=== PATIENT | male | born 1960 | race Caucasian/White ===

== ENCOUNTER → 2019-11-22 11:27 | Outpatient (CLI) | payer OTHER, SELFPAY ==
--- NOTE | ~2019-11-22 | XR_ITS ---
EXAMINATION: [id number] INDICATION: Left rib pain after fall TECHNIQUE: A frontal view of the chest and 3 views of the left ribs were obtained. COMPARISON: None. FINDINGS: The lungs are free of acute opacities. There is no pleural effusion or pneumothorax. The ca rdiomediastinal silhouette is normal. No displaced rib fracture is identified. IMPRESSION: 1. No acute cardiopulmonary abnormality or evidence of displaced rib fracture. Reviewed, dictated and finalized at location B.
--- NOTE | ~2019-11-22 | XR_ITS ---
EXAMINATION: XR lumbar spine 2-3V DATE: 11/22/2019 12:04 INDICATION: Back pain after fall TECHNIQUE: Anteroposterior and lateral views of the lumbar spine, and cone-down lateral view of the l umbosacral junction were obtained. COMPARISON: None. FINDINGS: There is no fracture, dislocation, or subluxation the lumbar spine. There is moderate to se gladis loss of intervertebral disc space height at L5-S1. Vertebral body heights are maintained. Small degenerative osteophytes project from the anterior endplates of multiple vertebral bodies. There is m oderate facet osteoarthritis of the lower lumbar spine. The gallbladder is surgically absent. There i s mild enlargement of the common bile duct and central intrahepatic ducts which is likely due to post cholecystectomy state. There is a possible left posterior 11th rib fracture. IMPRESSION: 1. Moderate to severe lumbar spondylosis at L5-S1 without acute findings of the lumbar spine. 2. Possible nondisplaced posterior left 11th rib fracture. Reviewed, dictated and finalized at location B.
--- NOTE | ~2019-11-22 | XR_ITS ---
EXAMINATION: XR thoracic spine 3V DATE: 11/22/2019 12:04 INDICATION: Back pain TECHNIQUE: AP, lateral and lateral swimmer's views of the thoracic spine were obtained. COMPARISON: None. FINDINGS: Vertebral body alignment is normal. No fracture is identified. There is mild loss of interv ertebral disc space height at multiple throughout the thoracic spine. Surgical clips in the right upp er quadrant are likely from prior cholecystectomy. The vertebral body heights are maintained. IMPRESSION: 1. Mild thoracic spondylosis without acute findings. Reviewed, dictated and finalized at location B.
== END ==
PROVIDERS: PCP Family Medicine Adolescent Medicine; Visit Provider Physician Assistant
DX: R07.81 Pleurodynia (principal); M54.9 Dorsalgia, unspecified; R93.7 Abnormal findings on diagnostic imaging of other parts of musculoskeletal system; M47.814 Spondylosis without myelopathy or radiculopathy, thoracic region; W19.XXXA Unspecified fall, initial encounter
CPT/HCPCS: 71101; 72072; 72100

== ENCOUNTER 2024-11-11 19:19 | Observation (INO) | payer OTHER, SELFPAY ==
--- NOTE | ~2024-11-11 | XR_ITS ---
EXAMINATION: XR chest 1V portable Exam Date/Time: 11/11/2024 19:52 CDT HISTORY: dizziness/weakness Comparison: None. RESULT: Lines, tubes, and devices: Cholecystectomy clips. Lungs and pleura: Clear. Cardiomediastinal silhouette: Unremarkable. Other: No acute osseous or upper abdominal finding. IMPRESSION: No acute cardiopulmonary process. Reviewed, dictated and finalized at location K.
--- NOTE | ~2024-11-11 | CT_ITS ---
EXAMINATION: CT brain wo con DATE: 11/11/2024 20:22 INDICATION: dizziness/vision changes . TECHNIQUE: Computed tomography (CT) of the head was performed without intravenous contrast. The mA wa s adjusted according to patient size. Iterative reconstruction technique was employed. The dose-lengt h product was 681.00 mGy-cm. COMPARISON: None. FINDINGS: No acute intracranial hemorrhage or extra-axial fluid collection. No hydrocephalus, mass, or herniation. No acute ischemic infarct. Unremarkable dural venous sinus attenuation. No acute osseous abnormality. Tiny retention cyst/polyp in the right maxillary sinus, the remaining aerated spaces are clear. IMPRESSION: No acute intracranial process. Reviewed, dictated and finalized at location K.
--- NOTE | ~2024-11-11 | MR_ITS ---
EXAMINATION: MR brain/brain stem wo con DATE: 11/12/2024 12:37 INDICATION: Dizziness. Unstable gait. TECHNIQUE: Magnetic resonance imaging (MRI) of the brain and brainstem was performed without intraven ous contrast. Sequences included sagittal and axial T1-weighted SE, axial diffusion-weighted FS SE, a xial 3D SWAN, axial T2-weighted FLAIR, and axial T2-weighted FSE. Postcontrast axial and coronal T1-w eighted SE was obtained. Apparent diffusion coefficient (ADC) maps were created. COMPARISON: None. FINDINGS: There are no areas of restricted diffusion to suggest acute infarction. No intracranial hemorrhage or abnormal intracranial mass lesion. There are scattered areas of nonspecific increased T2-weighted si gnal intensity in the cerebral white matter, predominantly involving the deep and periventricular whi te matter. There are no intraparenchymal signal abnormalities seen on the other pulse sequences. The ventricles are symmetric and normal in size. There are no abnormal extra-axial fluid collections. Bronson w voids are seen in the cerebral arteries on the T2-weighted sequences consistent with their expected patency. Left vertebral artery is dominant. Changes of bilateral intraocular lens replacement. Visu alized orbits and soft tissues are unremarkable. IMPRESSION: 1. Normal aging brain with a few scattered small foci of nonspecific white matter T2 hyperintensity w hich is within normal limits for age and likely sequela of chronic small vessel ischemic disease. Reviewed, dictated and finalized at location A. IMPRESSION: 1. Normal aging brain with a few scattered small foci of nonspecific white david er T2 hyperintensity which is within normal limits for age and likely sequela o f chronic small vessel ischemic disease.
--- NOTE | ~2024-11-11 | CT_ITS ---
EXAMINATION: CTA brain carotid DATE: 11/11/2024 21:33 INDICATION: dizziness TECHNIQUE: Computed tomographic angiography (CTA) of the head and neck was performed with 100 mL Omni paque-350 intravenous contrast. Automated exposure control and iterative reconstruction technique wer e employed. The dose-length product was 1026.18 mGy-cm. Maximum intensity projection and volume rende red 3D-reconstructions were created by the technologist on a separate workstation. COMPARISON: CT brain, same date. FINDINGS: CTA HEAD: No large vessel occlusion, aneurysm, high flow vascular malformation, nidus or extravasation. Hypopla stic intradural segment of the distal right vertebral artery. Hypoplastic/absent left P1 segment with persistent origin of the left posterior cerebral artery, a normal variant. Symmetric parenchym al enhancement. Patent cerebral veins. CTA NECK: Aortic arch and proximal great vessels: Normal arch anatomy. Atherosclerotic calcifications at the vi sualized aortic arch and proximal great vessels. Right common carotid, carotid bifurcation, and internal carotid artery: Mild calcified atheroscleroti c plaque at the carotid bifurcation.There is 0% stenosis of the proximal right internal carotid arter y relative to normal distal artery lumen diameter (NASCET criteria). Left common carotid, carotid bifurcation, and internal carotid artery: Moderate calcified atheroscler otic plaque at the carotid bifurcation.There is 10% stenosis of the proximal left internal carotid ar mariam relative to normal distal artery lumen diameter (NASCET criteria). Vertebral arteries: No significant plaque or stenosis. Left vertebral artery is dominant. Other findings: None. IMPRESSION: No large vessel intracranial occlusion, high-grade intracranial stenosis, or aneurysm. No carotid or vertebral artery occlusion, dissection, or significant stenosis. Reviewed, dictated and finalized at location K. IMPRESSION: No large vessel intracranial occlusion, high-grade intracranial stenosis, or an eurysm. No carotid or vertebral artery occlusion, dissection, or significant stenosis.
[2024-11-11 19:21] VITALS: BP 159/97; PULSE 60; RESP 18; TEMP 36.7; O2SAT 96
--- OUTSIDE RECORDS SUMMARY | 2024-11-11 19:22 | XMS_ITS | Clinical Summary ---
Author Organization [facility] [employer] Address [address] [place] [address] Care Team Providers Care Stereoptic Projection Topographer Name Role Phone Pablito Gates MD Primary Care Provider + Source Comments [facility] [employer],non-owned Affiliates and Associated Physician Practices is amultiple site organization consisting of ambulatory clinics and hospital sitesin [place], [place], [place] and [place]. This disclosure is being madepursuant to the Care Everywhere program and may not contain all information available regarding this patient. Last updated 18.[facility] [employer] Allergies No known active allergies Medications * Be aware that medications may not be up to date on this document. Alwaysverify current medications with the patient. Medication Sig Dispensed Refills Start Date End Date Status zolpidem (AMBIEN) 10 MG tablet Take 1 (one) tablet by mouth nightly as needed for Insomnia 20 tablet 10/20/2020 Active Active Problems No known active problems Social History Tobacco Use Types Packs/Day Years Used Date Smoking Tobacco: Never Smokeless Tobacco: Never Alcohol Use Standard Drinks/Week Comments Never 0 (1 standard drink = 0.6 oz pur e alcohol) AUDIT-C Answer Date Recorded Q1: How often do you have a drink containing alc ohol? Never 07/31/2020 Average Number of Drinks Not on file 020 Frequency of Binge Drinking Not on file 10/2019 Sex and Gender Information Value Date Recorded Sex Assigned at Not on file Gender Identity Not on file Sexual Orientation Not on file Last Filed Vital Signs Vital Sign Reading Time Taken Comments Blood Pressure 128/84 08/08/2020 1:00 PM CARDIAC RN Pulse 57 08/08/2020 1:00 PM CARDIAC RN Temperature 36.2 C (97.1 F) 08/08/2020 12:47 PM CARDIAC RN Respiratory Rate 15 08/08/2020 12:20 PM CARDIAC RN Oxygen Saturation 99% 08/08/2020 1:00 PM CARDIAC RN Inhaled Oxygen Concentration - - Weight 74.5 kg (164 lb 3.2 oz) 08/08/2020 8:12 A M CARDIAC RN Height 170.2 cm (5' 7 ) 08/08/2020 8:12 AM CARDIAC RN Body Mass Index 25.72 08/08/2020 8:12 AM CARDIAC RN Plan of Treatment Health Maintenance Due Date Last Done Comments COLOGUARD (AGES 45-75) - COL ON CA SCREENING 1960 COLON MONITORING 1960 COLONOSCOPY - COLON CA SCREENING 1960 CT COLONOGRAPHY - COLON CA SCREENING 1960 Colorectal Cancer Screening 1960 FIT - COLON CA SCREENING 1960 FLEX SIG - COLON CA SCREENING 1960 LIPID TESTING 1960 HIV SCREENING 12/26/1975 HEPATITIS C SCREENING 12/21/1978 DTAP/TDAP/TD VACCINES (1 - Tdap) 12/26/1979 PNEUMOCOCCAL VACCINE 50+ (1 of 1 - PCV) 2010 ZOSTER VACCINE (1 of 2) 2010 SCREENING FOR DIABETES 07/31/2020 COVID-19 VACCINE ( - 2023-2 5 season) 2024 INFLUENZA VACCINE (#1) 2024 DEPRESSION SCREENING 08/29/2024 Respiratory Syncytial Virus (RSV) Vaccine Pt: or over 60 yrs (1 - 1-dose 75+ series) 12/26/2035 HEPATITIS B VACCINE Aged Out No longe r eligible based on patient's age to complete this topic HIB VACCINE Aged Out No longer eligi ble based on patient's age to complete this topic HPV VACCINE Aged Out No longer eligi ble based on patient's age to complete this topic MENINGOCOCCAL (Group B) VACC INE SHARED DECISION-MAKING Aged Out No longer eligibl e based on patient's age to complete this topic MENINGOCOCCAL GROUPS A/C/Y/W VACCINE Aged Out No longer eligible b ased on patient's age to complete this topic PNEUMOCOCCAL VACCINE Aged Out No long er eligible based on patient's age to complete this topic Medical Devices Implanted Type Area Applied Psychology Teacher Device Identifier Shelf Expiration Date Model / Serial / Lot [place] Sut Iconix Spd Xbraid 2.3mm 1.2mm Implanted:Qty : 2 on 08/08/2020 by Nayely Reddy MD at [facility] Right: Shoulder [employer] 05/19/2022 [id number] / / [id number] [place] Sut Reelx Stt 4.5mm Peek Mtl Implanted:Qty : 2 on 08/08/2020 by Nayely Reddy MD at [facility] Right: Shoulder [employer] 04/28/2022 [id number] / / [id number] Care Teams Stereoptic Projection Topographer Relationship Specialty Start Date End Date Pablito Gates MD [address] [address] PCP - General Family Medicine 07/31/20
--- OUTSIDE RECORDS SUMMARY | 2024-11-11 19:22 | XMS_ITS | Referral Summary ---
Author Organization [facility] Address [address] [place] [address] Care Team Providers Care Parts Lister Name Role Phone Pablito Gates MD Primary Care Provider + Source Comments [facility],non-owned Affiliates and Associated Physician Practices is amultiple site organization consisting of ambulatory clinics and hospital sitesin [place], [place], [place]. This disclosure is being madepursuant to the Care Everywhere program and may not contain all information available regarding this patient. Last updated 18.[facility] [employer] Allergies No known active allergies Medications * [...] Comments Blood Pressure 128/84 08/08/2020 1:00 PM FORM SETTER SUPERVISOR Pulse 57 08/08/2020 1:00 PM FORM SETTER SUPERVISOR Temperature 36.2 C (97.1 F) 08/08/2020 12:47 PM FORM SETTER SUPERVISOR Respiratory Rate 15 08/08/2020 12:20 PM FORM SETTER SUPERVISOR Oxygen Saturation 99% 08/08/2020 1:00 PM FORM SETTER SUPERVISOR Inhaled Oxygen Concentration - - Weight 74.5 kg (164 lb 3.2 oz) 08/08/2020 8:12 A M FORM SETTER SUPERVISOR Height 170.2 cm (5' 7 ) 08/08/2020 8:12 AM FORM SETTER SUPERVISOR Body Mass Index 25.72 08/08/2020 8:12 AM FORM SETTER SUPERVISOR Plan of Treatment Not on file Medical Devices Implanted Type Area Restrike Hammer Operator Device Identifier Shelf Expiration Date Model / Serial / Lot [place] Sut Iconix Spd Xbraid 2.3mm 1.2mm Implanted:Qty : 2 on 08/08/2020 by Nayely Reddy MD at [facility] Right: Shoulder [employer] 05/19/2022 [id number] / / [id number] [place] Sut Reelx Stt 4.5mm Peek Mtl Implanted:Qty : 2 on 08/08/2020 by Nayely Reddy MD at [facility] Right: Shoulder [employer] 04/28/2022 [id number] / / [id number] Care Teams Parts Lister Relationship Specialty Start Date End Date Pablito Gates MD [address] [address] PCP - General Family Medicine 07/31/20
--- OUTSIDE RECORDS SUMMARY | 2024-11-11 19:22 | XMS_ITS | Patient Health Summary ---
Author Organization [facility] Address [address] [place] [address] Care Team Providers Care Manufacturing Coordinator Name Role Phone Pablito Gates MD Primary Care Provider + Note from [facility],non-owned Affiliates and Associated Physician Practices is amultiple site organization consisting of ambulatory clinics and hospital sitesin [place], [place] and [place]. This disclosure is being madepursuant to the Care Everywhere program and may not contain all information available regarding this patient. Last updated 18.[facility] Allergies No known active allergies Medications * Be aware that medications may not be up to date on this document. Alwaysverify current medications with the patient. * zolpidem (AMBIEN) 10 MG tablet(Started 10/20/2020) Take 1 (one) tablet by mouth nightly as needed for Insomnia Active Problems No known active problems Social [...] Comments Blood Pressure 128/84 08/08/2020 1:00 PM NETWORK SECURITY ADMINISTRATOR Pulse 57 08/08/2020 1:00 PM NETWORK SECURITY ADMINISTRATOR Temperature 36.2 C (97.1 F) 08/08/2020 12:47 PM NETWORK SECURITY ADMINISTRATOR Respiratory Rate 15 08/08/2020 12:20 PM NETWORK SECURITY ADMINISTRATOR Oxygen Saturation 99% 08/08/2020 1:00 PM NETWORK SECURITY ADMINISTRATOR Inhaled Oxygen Concentration - - Weight 74.5 kg (164 lb 3.2 oz) 08/08/2020 8:12 A M NETWORK SECURITY ADMINISTRATOR Height 170.2 cm (5' 7 ) 08/08/2020 8:12 AM NETWORK SECURITY ADMINISTRATOR Body Mass Index 25.72 08/08/2020 8:12 AM NETWORK SECURITY ADMINISTRATOR Medical Devices Implanted Type Area Forklift Operator Device Identifier Shelf Expiration Date Model / Serial / Lot [place] Sut Iconix Spd Xbraid 2.3mm 1.2mm Implanted:Qty : 2 on 08/08/2020 by Nayely Reddy MD at [facility] Right: Shoulder [employer] 05/19/2022 [id number] / / [id number] [place] Sut Reelx Stt 4.5mm Peek Mtl Implanted:Qty : 2 on 08/08/2020 by Nayely Reddy MD at [facility] Right: Shoulder [place] [employer] 04/28/2022 [id number] / / [id number] Procedures * CARDIAC RHYTHM STRIP ORDER(Performed 08/11/2020) * IMAGING/RADIOLOGY/XRAY RESULTS ORDER(Performed 08/11/2020) * REPAIR ROTATOR CUFF SHOULDER (OPEN)(Performed 08/08/2020) Performed for Traumatic tear of right rotator cuff, initial encounter * MT SCOPE SHLDR SURG;W/ROTOR CUFF(Performed 08/08/2020) Performed for Traumatic tear of right rotator cuff, initial encounter * PERIPHERAL BLOCK(Performed 08/08/2020) * SARS-COV-2 (COVID-19) IN HOUSE(Performed 08/04/2020) Performed for Pre-op testing * SARS-COV2 (COVID-19) PANEL (STL)(Performed 08/04/2020) Performed for Pre-op testing * IMAGING/RADIOLOGY/XRAY RESULTS ORDER(Performed 07/14/2020) Results * CARDIAC RHYTHM STRIP ORDER (08/11/2020 9:22 PM NETWORK SECURITY ADMINISTRATOR) Narrative 08/11/2020 9:22 PM NETWORK SECURITY ADMINISTRATOR Ordered by an unspecified provider. Scanned Document CARDIAC SERVICES ORD ERABLES * IMAGING RADIOLOGY XRAY RESULTS ORDER (08/11/2020 7:41 PM NETWORK SECURITY ADMINISTRATOR) Only the most recent of2 resultswithin the time period is included. Anatomical Region Laterality Modality Other Narrative 08/11/2020 7:41 PM NETWORK SECURITY ADMINISTRATOR Ordered by an unspecified provider. Scanned Document IMAGING * Peripheral Nerve Block (08/08/2020 9:12 AM NETWORK SECURITY ADMINISTRATOR) Narrative Dennis Duff MD - 08/08/2020 9:12 AM NETWORK SECURITY ADMINISTRATOR Dennis Duff MD 08/08/2020 9:13 AM Peripheral Nerve Block Procedure: Peripheral Nerve Block Patient Location: Pre-op Preprocedure Section: Indications: at surgeon's request and postop pain management. Pre-anesthetic Checklist: Patient identified, IV Checked, Site examined and clear, Risks and benefits discussed, Surgical consent verified, Monitors and equipment, Time-out performed, Informed consent obtained, Pre-op evaluation done, Questions answered/anesthesia questions answered, Allergies reviewed and Removal hand/wrist jewelry Monitors: Pulse Ox. Patient Condition: sedated, meaningful contact maintained throughout procedure Patient Position: supine Patient Sedated? Yes Sedation Type: mild Sedation Agents: fentaNYL (PF) (SUBLIMAZE) injection, 50 mcg midazolam (VERSED) injection, 2 mg Procedure Section Laterality: right Block Performed: interscalene Prep: Chloraprep Strerile Field: gloves, mask, hat/cap and sterile ultrasound sleeve Skin localized with: lidocaine (XYLOCAINE) 1 % injection, 3 mL Needle Type: nerve stimulator Needle Gauge: 21 Needle Length: 80 mm Catheter? No Ultrasound Guided? Yes Technique: in plane Visualization: Target identified, Local visualized surrounding nerve on ultrasound, Ultrasound image in chart, Preliminary scan performed, Important anatomical structures identified, Needle tip visualized throughout the procedure and No intraneural or intravascular puncture occurred Injection was made incrementally with constant monitoring and aspirations every 5 mL's Injection Assessment: Slow fractionated injection Block Agents or Additives used? Yes Block agents used: bupivacaine PF (MARCAINE PF) 0.5 % injection, 15 mL bupivacaine liposome (EXPAREL) 1.3 % injection, 10 mL Procedure Tolerance: tolerated well Procedure Start Time: 08/08/2020 9:02 AM. Procedure End Time: 08/08/2020 9:11 AM. Procedure Total Time: 9 minutes. Staff Section Anesthesia Provider: Dennis Duff MD, Performed the procedure Dennis Duff MD GENERAL ANESTH ESIA ORDERABLES * SARS-COV-2 (COVID-19) IN HOUSE (08/04/2020 11:09 AM NETWORK SECURITY ADMINISTRATOR) COVID-19 PCR Not detected Not detected 08/04/2020 2:44 PM NETWORK SECURITY ADMINISTRATOR [facility] Microbiology SPECIMEN FROM NASOPHARYNGEAL STRUCTURE / Unknown Collection / Unknown 08/04/2020 11:09 AM NETWORK SECURITY ADMINISTRATOR 08/04/2020 11:09 AM NETWORK SECURITY ADMINISTRATOR Narrative [facility] - 08/04/2020 2:44 PM NETWORK SECURITY ADMINISTRATOR This nucleic acid amplification assay performance was validated by [facility]. This test has been authorized by the Food and Drug administration (FDA)under an Emergency Use Authorization (EUA). This test has been validated in accordance with the FDA's guidance document Policy for Diagnostic Testing in Laboratories Certified to perform High Complexity Testing under CLIA prior to Emergency Use Authorization for Coronavirus Disease-2019 during the Public Health Emergency issued on October 27, 2019. FDA independent review of this validation is pending. This test is only authorized for the duration of time the declaration that circumstances exist justifying the authorization of emergency use of in vitro diagnostic tests for detection of SARS-CoV-2 virus and/or diagnosis of COVID-19 infection under section 564(b)(1) of the Act, 21 U.S.C 360bbb-3 (b)(1), unless the authorization is terminated or revoked sooner. Fact Sheets for this EUA assay are available upon request. Nayely Reddy MD LAB - MICROBIOLOGY O RDERABLES [facility] [address] [place] [address], [facility] [phone] Care Teams Manufacturing Coordinator Relationship Specialty Start Date End Date Pablito Gates MD [address] [address] PCP - General Family Medicine 07/31/20
--- NOTE | 2024-11-11 19:27 | ECG_ITS ---
Test Date: 2024-11-11 19:31:51 Measurements Intervals [place] Rate: 56 P: 32 FL: 175 QRS: -27 QRSD: 110 T: 23 QT: 415 QTc: 401 Interpretive Statements SINUS BRADYCARDIA INFERIOR MYOCARDIAL INFARCTION , PROBABLY OLD [40+ ms Q WAVE AND/OR ST/T ABNORMALITY IN II/aVF] No previous ECG available for comparison Electronically Signed On 11-12-2024 15:13:30 CDT by Jorge Russell M.D.
[2024-11-11 19:43] LABS: Basophils Absolute Auto 0.1 K/mm3 (0.0-0.1); Basophils Percent Auto 1.4 % (0.2-1.2); Eosinophils Absolute Auto 0.1 K/mm3 (0-0.3); Eosinophils Percent Auto 1.2 % (0-4.4); Hematocrit 45.4 % (42.0-52.0); Hemoglobin 16.3 g/dL (14.0-18.0); Immature Granulocyte Absolute 0.09 K/mm3 (0.00-0.031); Immature Granulocyte Percent A 1.2 % (0-0.5); Lymphocytes Absolute Auto 2.26 K/mm3 (0.9-3.2); Lymphocytes Percent Auto 30.9 % (18.3-44.2); Mean Corpuscular HGB Conc 35.9 g/dl (32-36); Mean Corpuscular Hemoglobin 33.4 pg (26-34); Mean Platelet Volume 9.1 fl (7.4-10.4); Monocytes Absolute Auto 0.5 K/mm3 (0.1-0.6); Monocytes Percent Auto 6.7 % (2.6-8.5); Neutrophils Absolute Auto 4.3 K/mm3 (1.3-6.7); Neutrophils Percent Auto 58.6 % (45.5-73.1); Platelet Count Result 224 k/mm3 (150-375); Red Blood Count 4.88 M/mm3 (4.6-6.20); White Blood Count 7.3 K/mm3 (4.5-10.0)
[2024-11-11 19:57] LABS: Alanine Aminotransferase 42 U/L (6-50); Albumin Level 4.6 g/dL (3.5-5.1); Alkaline Phosphatase 86 U/L (38-126); Anion Gap 9 mmol/L (4-12); Aspartate Amino Transferase 30 U/L (17-59); Bilirubin,Total 0.7 mg/dL (0.2-1.3); Blood Urea Nitrogen 24 mg/dL (9-20); Calcium 9.3 mg/dL (8.4-10.2); Carbon Dioxide 27 mmol/L (22-30); Chloride 101 mmol/L (98-107); Estimated CRCL calculation 49 ml/min; Estimated Glomerular Filt Rate 56; Glucose 115 mg/dL (65-110); Potassium 4.1 mmol/L (3.4-5.0); Sodium 137 mmol/L (137-145)
--- NOTE | 2024-11-11 20:02 | PC.NURSE ---
Patient reports dizziness/blurred vision to be intermittent. Currently not experiencing any symptoms besides weakness.
--- NOTE | 2024-11-11 20:37 | ED.NEUROSD ---
HPI - Neuro Symptoms/Deficit General Chief Complaint: Neuro Symptoms/Deficit <KATERINA Rankin Last Filed: 11/12/24 00:51> Stated Complaint: pale, double vision, balance issues, nausea <KATERINA Rankin Last Filed: 11/12/24 00:51> Time Seen by Provider: 11/11/24 20:17 <KATERINA Rankin Last Filed: 11/12/24 00:51> Source: patient <KATERINA Rankin Last Filed: 11/12/24 00:51> Mode of arrival: ambulatory <KATERINA Rankin Last Filed: 11/12/24 00:51> Limitations: no limitations <KATERINA Rankin Last Filed: 11/12/24 00:51> History of Present Illness HPI Narrative: This is a 63 year old male that presents to the ER for dizziness. Ongoing since yesterday. Reports feeling unwell, dizziness, unsteady gait, blurry vision. Worsening upon standing. reports some confusion and slurred speech. <KATERINA Rankin Last Filed: 11/12/24 00:51> Related Data Home Medications: Home Medications ?Medication ?Instructions ?Recorded ?Confirmed ?Last Taken ?Type methylprednisolone 4 mg tablets in mg 11/12/24 11/11/24 History a dose pack <KATERINA Rankin Last Filed: 11/12/24 00:51> Allergies/Adverse Reactions: Allergies Allergy/AdvReac Type Severity Reaction Status Date / Time No Known Allergies Allergy Mild Verified 04/27/23 12:37 <KATERINA Rankin Last Filed: 11/12/24 00:51> Review of Systems Review of Systems: CONSTITUTIONAL: Denies fever EYES: Reports visual changes CARDIOVASCULAR: Denies chest pain RESPIRATORY: Denies dyspnea. GASTROINTESTINAL: Denies abdominal pain, nausea, vomiting NEUROLOGIC: Denies headache, numbness, or weakness. <KATERINA Rankin Last Filed: 11/12/24 00:51> All systems reviewed & are unremarkable except as noted in HPI and below <KATERINA Rankin Last Filed: 11/12/24 00:51> [facility] Past Medical History Medical History: Medical History (Updated 11/12/24 @ 12:18 by Jere Aldrich MD) AMS (altered mental status) Mixed hyperlipidemia <Savannah Sheikh PA-C - Last Filed: 11/12/24 00:51> Surgical History Surgical History: Surgical History (Updated 12/09/21 @ 07:01 by Pablito Gates MD) History of shoulder surgery 2020 Right rotator cuff repair History of tonsillectomy History of cholecystectomy 2005 <Savannah Sheikh PA-C - Last Filed: 11/12/24 00:51> Family History Family History: Family History Father Heart disease Mother Diabetes mellitus FH: ovarian cancer Cerebrovascular accident Colon polyp Hypertension Sibling CHF (congestive heart failure) Grandparent Acute myocardial infarction Other Malignant neoplasm of prostate <Savannah Sheikh PA-C - Last Filed: 11/12/24 00:51> Social History Social History: Social History (Updated 04/27/23 @ 13:01 by Edward Pelletier CMA) Smoking status: Never smoker Second hand tobacco smoke exposure: No Alcohol intake: never Substance use: never Substance use type: does not use Do You Feel Safe in your Home?: Yes Lack of Transportation: No Lack of Food: Never True Current Housing: I Have Housing Concerned About Future Housing: No Difficulty Paying Gas/Electric Bills: No Difficulty Paying for Meds: No Currently Unemployed: No Education: Associate Degree Difficulty w/ Childcare or Family Care: No Living arrangements: with family Occupation/Education: occupation Gender identity (if verbalized by the patient): Male Sexual Orientation (if Verbalized by the Patient): Straight or Heterosexual Spiritual care concerns: No Agree to blood products: Yes <Savannah Sheikh PA-C - Last Filed: 11/12/24 00:51> Exam Narrative: GENERAL: Well-appearing, well-nourished, and in no acute distress. HEAD: Normocephalic, atraumatic. EYES: PERRLA and EOMI. ENT: Nares clear, no rhinorrhea or epistaxis. Mucous membranes moist. Oropharynx without tonsillar hypertrophy exudate or other lesions. Bilateral TMs pearly mccollum non-bulging NECK: Supple. No adenopathy or masses. CHEST: Clear to auscultation. No respiratory distress. No wheezes rales or rhonchi HEART: Regular rate and rhythm. No murmur heard. Normal peripheral pulses. ABDOMEN: Soft, nontender, nondistended, normal active bowel sounds. EXTREMITIES: Normal range of motion. No edema. Strength equal in bilateral upper and lower extremities (5/5) SKIN: Warm, dry, no rash. NEURO: No focal deficits. Alert and oriented x3. Cranial nerves 2-12 grossly intact. Normal finger-nose PSYCH: Normal mood and affect <Savannah Sheikh PA-C - Last Filed: 11/12/24 00:51> Course Course Emergency Course: patient and family updated on workup and recommendation for admission <Savannah Sheikh PA-C - Last Filed: 11/12/24 00:51> WATCH ASSEMBLY INSPECTOR/PA Physician Supervision I briefly heard PA give partial report to aeronautics teacher admitting hospitalist. Aware this patient is being admitted. I was available for consultation patient was in the emergency department but did not personally evaluate them was not directly involved in their care <Nya Pierce MD - Last Filed: 11/12/24 13:31> Consultations Consultation #1: spoke with hospitalist about patient and workup who accepts admission <Savannah Sheikh PA-C - Last Filed: 11/12/24 00:51> Date: 11/12/24 <Savannah Sheikh PA-C - Last Filed: 11/12/24 00:51> Consultation #2: spoke with neurology who will consult <Savannah Sheikh PA-C - Last Filed: 11/12/24 00:51> Date: 11/12/24 <Savannah Sheikh PA-C - Last Filed: 11/12/24 00:51> Vital Signs Vital signs: Vital Signs Temperature 98.1 F 11/11/24 19:21 Pulse Rate 60 11/11/24 19:21 Respiratory Rate 18 11/11/24 19:21 Blood Pressure 159/97 H 11/11/24 19:21 Pulse Oximetry 96 11/11/24 19:21 Oxygen Delivery Room Air 11/11/24 19:21 Temperature 97.8 F 11/12/24 08:00 Pulse Rate 51 L 11/12/24 08:00 Respiratory Rate 18 11/12/24 08:00 Blood Pressure 149/87 H 11/12/24 08:00 Pulse Oximetry 98 11/12/24 08:00 Oxygen Delivery Room Air 11/12/24 08:00 <Savannah Sheikh PA-C - Last Filed: 11/12/24 00:51> Vital Signs Temperature 98.1 F 11/11/24 19:21 Pulse Rate 60 11/11/24 19:21 Respiratory Rate 18 11/11/24 19:21 Blood Pressure 159/97 H 11/11/24 19:21 Pulse Oximetry 96 11/11/24 19:21 Oxygen Delivery Room Air 11/11/24 19:21 Temperature 97.8 F 11/12/24 08:00 Pulse Rate 51 L 11/12/24 08:00 Respiratory Rate 18 11/12/24 08:00 Blood Pressure 149/87 H 11/12/24 08:00 Pulse Oximetry 98 11/12/24 08:00 Oxygen Delivery Room Air 11/12/24 08:00 <Nya Pierce MD - Last Filed: 11/12/24 13:31> MDM - Neuro Symptoms/Deficit MDM Narrative Medical decision making narrative: Patient presents to the ER for dizziness, unsteady gait, confusion, ongoing since yesterday. He is neurologically intact. His vitals are stable. Cbc metabolic panel without concerning findings. Urine without evidence of infection. Drug screen is negative. Alcohol level is not elevated. CT brain without acute findings. Chest x-ray without acute cardiopulmonary abnormality. CTA head and neck without large vessel intracranial occlusion, agreed intracranial stenosis or aneurysm. No carotid or vertebral artery occlusion, dissection or significant stenosis. Patient continues to be unsteady after IV fluids, zofran, meclizine. patient and family updated on workup and recommendation for admission. spoke with hospitalist about patient and workup who accepts admission. spoke with neurology who will consult <Savannah Sheikh PA-C - Last Filed: 11/12/24 00:51> Differential Diagnosis Differential diagnosis: Likely cerebrovascular accident, multiple sclerosis and other (BPPV, vertigo) <Savannah Sheikh PA-C - Last Filed: 11/12/24 00:51> Lab Data Attestation: I reviewed the patient's lab results. <Savannah Sheikh PA-C - Last Filed: 11/12/24 00:51> Result diagrams: 11/11/24 19:38 11/11/24 19:38 <Savannah Sheikh PA-C - Last Filed: 11/12/24 00:51> Labs: Lab Results 11/11/24 11/11/24 Range/Units 19:38 21:44 WBC 7.3 (4.5-10.0) K/mm3 RBC 4.88 (4.6-6.20) M/mm3 Hgb 16.3 (14.0-18.0) g/dL Hct 45.4 (42.0-52.0) % MCV 93.0 (80-100) fl MCH 33.4 (26-34) pg MCHC 35.9 (32-36) g/dl RDW 12.0 (11.5-14.5) % Plt Count 224 (150-375) k/mm3 MPV 9.1 (7.4-10.4) fl Immature Gran % (Auto) 1.2 H (0-0.5) % Neut % (Auto) 58.6 (45.5-73.1) % Lymph % (Auto) 30.9 (18.3-44.2) % [place] % (Auto) 6.7 (2.6-8.5) % Eos % (Auto) 1.2 (0-4.4) % Baso % (Auto) 1.4 H (0.2-1.2) % Lymph # (Auto) 2.26 (0.9-3.2) K/mm3 [place] # (Auto) 0.5 (0.1-0.6) K/mm3 Eos # (Auto) 0.1 (0-0.3) K/mm3 Baso # (Auto) 0.1 (0.0-0.1) K/mm3 Abs Immat Gran (auto) 0.09 H (0.00-0.031) K/mm3 Absolute Neuts (auto) 4.3 (1.3-6.7) K/mm3 Absolute Nucleated RBC 0.000 (0.0-0.012) K/mm3 Nucleated RBC % 0.0 (0.0-0.2) % Sodium 137 (137-145) mmol/L Potassium 4.1 (3.4-5.0) mmol/L Chloride 101 (98-107) mmol/L Carbon Dioxide 27 (22-30) mmol/L Anion Gap 9 (4-12) mmol/L BUN 24 H (9-20) mg/dL Creatinine 1.29 (0.7-1.3) mg/dL Estim Creat Clear Calc 49 ml/min Estimated GFR 56 L (59 - ) Glucose 115 H (65-110) mg/dL Calcium 9.3 (8.4-10.2) mg/dL Total Bilirubin 0.7 (0.2-1.3) mg/dL AST 30 (17-59) U/L ALT 42 (6-50) U/L Alkaline Phosphatase 86 (38-126) U/L Total Protein 8.0 (6.3-8.2) g/dL Albumin 4.6 (3.5-5.1) g/dL Urine Color Yellow (Yellow) Urine Appearance Clear (Clear) Urine pH 7.0 (5.0-9.0) Ur Specific [place] > 1.045 H (1.001-1.035) Urine Protein Negative (Negative) mg/dL Urine Glucose (UA) Negative (Negative) mg/dL Urine Ketones Negative (Negative) mg/dL Ur Blood (Man) Negative (Negative) Urine Nitrate Negative (Negative) Urine Bilirubin Negative (Negative) Urine Urobilinogen 1.0 (<2.0) mg/dL Leukocyte Esterase Rfl Negative (Negative) ENE/UL Urine Opiates Screen Negative (Negative) Urine Methadone Screen Negative (Negative) Ur Barbiturates Screen Negative (Negative) Ur Phencyclidine Scrn Negative (Negative) Ur Amphetamine Screen Negative (Negative) U Benzodiazepines Scrn Negative (Negative) Urine Cocaine Screen Negative (Negative) U Cannabinoids Screen Negative (Negative) Ethyl Alcohol < 10 (<10) mg/dL Influenza A (RT-PCR) Negative (Negative) Influenza B (RT-PCR) Negative (Negative) RSV (RT-PCR) Negative (Negative) SARS-CoV-2 RNA (RT-PCR) Negative (Negative) <Savannah Sheikh PA-C - Last Filed: 11/12/24 00:51> Lab Results 11/11/24 11/11/24 Range/Units 19:38 21:44 WBC 7.3 (4.5-10.0) K/mm3 RBC 4.88 (4.6-6.20) M/mm3 Hgb 16.3 (14.0-18.0) g/dL Hct 45.4 (42.0-52.0) % MCV 93.0 (80-100) fl MCH 33.4 (26-34) pg MCHC 35.9 (32-36) g/dl RDW 12.0 (11.5-14.5) % Plt Count 224 (150-375) k/mm3 MPV 9.1 (7.4-10.4) fl Immature Gran % (Auto) 1.2 H (0-0.5) % Neut % (Auto) 58.6 (45.5-73.1) % Lymph % (Auto) 30.9 (18.3-44.2) % [place] % (Auto) 6.7 (2.6-8.5) % Eos % (Auto) 1.2 (0-4.4) % Baso % (Auto) 1.4 H (0.2-1.2) % Lymph # (Auto) 2.26 (0.9-3.2) K/mm3 [place] # (Auto) 0.5 (0.1-0.6) K/mm3 Eos # (Auto) 0.1 (0-0.3) K/mm3 Baso # (Auto) 0.1 (0.0-0.1) K/mm3 Abs Immat Gran (auto) 0.09 H (0.00-0.031) K/mm3 Absolute Neuts (auto) 4.3 (1.3-6.7) K/mm3 Absolute Nucleated RBC 0.000 (0.0-0.012) K/mm3 Nucleated RBC % 0.0 (0.0-0.2) % Sodium 137 (137-145) mmol/L Potassium 4.1 (3.4-5.0) mmol/L Chloride 101 (98-107) mmol/L Carbon Dioxide 27 (22-30) mmol/L Anion Gap 9 (4-12) mmol/L BUN 24 H (9-20) mg/dL Creatinine 1.29 (0.7-1.3) mg/dL Estim Creat Clear Calc 49 ml/min Estimated GFR 56 L (59 - ) Glucose 115 H (65-110) mg/dL Calcium 9.3 (8.4-10.2) mg/dL Total Bilirubin 0.7 (0.2-1.3) mg/dL AST 30 (17-59) U/L ALT 42 (6-50) U/L Alkaline Phosphatase 86 (38-126) U/L Total Protein 8.0 (6.3-8.2) g/dL Albumin 4.6 (3.5-5.1) g/dL Urine Color Yellow (Yellow) Urine Appearance Clear (Clear) Urine pH 7.0 (5.0-9.0) Ur Specific [place] > 1.045 H (1.001-1.035) Urine Protein Negative (Negative) mg/dL Urine Glucose (UA) Negative (Negative) mg/dL Urine Ketones Negative (Negative) mg/dL Ur Blood (Man) Negative (Negative) Urine Nitrate Negative (Negative) Urine Bilirubin Negative (Negative) Urine Urobilinogen 1.0 (<2.0) mg/dL Leukocyte Esterase Rfl Negative (Negative) ENE/UL Urine Opiates Screen Negative (Negative) Urine Methadone Screen Negative (Negative) Ur Barbiturates Screen Negative (Negative) Ur Phencyclidine Scrn Negative (Negative) Ur Amphetamine Screen Negative (Negative) U Benzodiazepines Scrn Negative (Negative) Urine Cocaine Screen Negative (Negative) U Cannabinoids Screen Negative (Negative) Ethyl Alcohol < 10 (<10) mg/dL Influenza A (RT-PCR) Negative (Negative) Influenza B (RT-PCR) Negative (Negative) RSV (RT-PCR) Negative (Negative) SARS-CoV-2 RNA (RT-PCR) Negative (Negative) <Nya Pierce MD - Last Filed: 11/12/24 13:31> Imaging Data Radiologist's impression: ITS Impressions Chest X-Ray 11/11/24 20:13 IMPRESSION: No acute cardiopulmonary process. Head CT 11/11/24 20:32 IMPRESSION: No acute intracranial process. Head/Neck CTA 11/11/24 21:45 IMPRESSION: No large vessel intracranial occlusion, high-grade intracranial stenosis, or aneurysm. No carotid or vertebral artery occlusion, dissection, or significant stenosis. <Savannah Sheikh PA-C - Last Filed: 11/12/24 00:51> Critical Care Time Critical Care Time Critical Care Time: No <Savannah Sheikh PA-C - Last Filed: 11/12/24 00:51> Discharge Plan Discharge Clinical Impression: Dizziness, Unsteady gait <Savannah Sheikh PA-C - Last Filed: 11/12/24 00:51> Patient Disposition: Still a Patient <KATERINA Rankin Last Filed: 11/12/24 00:51> Condition: Stable <Savannah Sheikh PA-C - Last Filed: 11/12/24 00:51>
--- OUTSIDE RECORDS SUMMARY | 2024-11-11 20:40 | XMS_ITS | Clinical Summary ---
Author Organization [facility] Address [address] [place] [address] Care Team Providers Care Senior Staff Psychologist Name Role Phone Pablito Gates MD Primary Care Provider + Source Comments [facility],non-owned Affiliates and Associated Physician Practices is amultiple site organization consisting of ambulatory clinics and hospital sitesin [place], [place], [place] and [place]. This disclosure is being madepursuant to the Care Everywhere program and may not contain all information available regarding this patient. Last updated 18.[facility] Allergies No known active allergies Medications * [...] Comments Blood Pressure 128/84 08/08/2020 1:00 PM FORGE SHOP SUPERVISOR Pulse 57 08/08/2020 1:00 PM FORGE SHOP SUPERVISOR Temperature 36.2 C (97.1 F) 08/08/2020 12:47 PM FORGE SHOP SUPERVISOR Respiratory Rate 15 08/08/2020 12:20 PM FORGE SHOP SUPERVISOR Oxygen Saturation 99% 08/08/2020 1:00 PM FORGE SHOP SUPERVISOR Inhaled Oxygen Concentration - - Weight 74.5 kg (164 lb 3.2 oz) 08/08/2020 8:12 A M FORGE SHOP SUPERVISOR Height 170.2 cm (5' 7 ) 08/08/2020 8:12 AM FORGE SHOP SUPERVISOR Body Mass Index 25.72 08/08/2020 8:12 AM FORGE SHOP SUPERVISOR Plan of Treatment Health Maintenance Due Date [...] this topic Medical Devices Implanted Type Area Edge Molder Device Identifier Shelf Expiration Date Model / Serial / Lot [place] Sut Iconix Spd Xbraid 2.3mm 1.2mm Implanted:Qty : 2 on 08/08/2020 by Nayely Reddy MD at [facility] Right: Shoulder [employer] 05/19/2022 [id number] / / [id number] [place] Sut Reelx Stt 4.5mm Peek Mtl Implanted:Qty : 2 on 08/08/2020 by Nayely Reddy MD at [facility] Right: Shoulder [employer] 04/28/2022 [id number] / / [id number] Care Teams Senior Staff Psychologist Relationship Specialty Start Date End Date Pablito Gates MD [address] [address] PCP - General Family Medicine 07/31/20
--- OUTSIDE RECORDS SUMMARY | 2024-11-11 20:40 | XMS_ITS | Patient Health Summary ---
Author Organization [facility] Address [address] [address] Care Team Providers Care Department Helper Name Role Phone Pablito Gates MD Primary Care Provider + Note from [facility],non-owned Affiliates and Associated Physician Practices is amultiple site organization consisting of ambulatory clinics and hospital sitesin [place], [place], [place] and [place]. This disclosure is being madepursuant to the Care Everywhere program and may not contain all information available regarding this patient. Last updated 18.[facility] Allergies No known active allergies Medications [...] Comments Blood Pressure 128/84 08/08/2020 1:00 PM RABBIT FANCIER Pulse 57 08/08/2020 1:00 PM RABBIT FANCIER Temperature 36.2 C (97.1 F) 08/08/2020 12:47 PM RABBIT FANCIER Respiratory Rate 15 08/08/2020 12:20 PM RABBIT FANCIER Oxygen Saturation 99% 08/08/2020 1:00 PM RABBIT FANCIER Inhaled Oxygen Concentration - - Weight 74.5 kg (164 lb 3.2 oz) 08/08/2020 8:12 A M RABBIT FANCIER Height 170.2 cm (5' 7 ) 08/08/2020 8:12 AM RABBIT FANCIER Body Mass Index 25.72 08/08/2020 8:12 AM RABBIT FANCIER Medical Devices Implanted Type Area Transcribing Machine Operator Device Identifier Shelf Expiration Date Model / Serial / Lot [place] Sut Iconix Spd Xbraid 2.3mm 1.2mm Implanted:Qty : 2 on 08/08/2020 by Nayely Reddy MD at [facility] Right: Shoulder [employer] 05/19/2022 [id number] / / [id number] [place] Sut Reelx Stt 4.5mm Peek Mtl Implanted:Qty : 2 on 08/08/2020 by Nayely Reddy MD at [facility] Right: Shoulder [employer] 04/28/2022 [id number] / / [id number] Procedures * CARDIAC RHYTHM STRIP ORDER(Performed 08/11/2020) * IMAGING/RADIOLOGY/XRAY RESULTS ORDER(Performed 08/11/2020) * REPAIR ROTATOR CUFF SHOULDER (OPEN)(Performed 08/08/2020) Performed for Traumatic tear of right rotator cuff, initial encounter * OK SCOPE SHLDR SURG;W/ROTOR CUFF(Performed 08/08/2020) Performed for Traumatic tear of right rotator cuff, initial encounter * PERIPHERAL BLOCK(Performed 08/08/2020) * SARS-COV-2 (COVID-19) IN HOUSE(Performed 08/04/2020) Performed for Pre-op testing * SARS-COV2 (COVID-19) PANEL (STL)(Performed 08/04/2020) Performed for Pre-op testing * IMAGING/RADIOLOGY/XRAY RESULTS ORDER(Performed 07/14/2020) Results * CARDIAC RHYTHM STRIP ORDER (08/11/2020 9:22 PM RABBIT FANCIER) Narrative 08/11/2020 9:22 PM RABBIT FANCIER Ordered by an unspecified provider. Scanned Document CARDIAC SERVICES ORD ERABLES * IMAGING RADIOLOGY XRAY RESULTS ORDER (08/11/2020 7:41 PM RABBIT FANCIER) Only the most recent of2 resultswithin the time period is included. Anatomical Region Laterality Modality Other Narrative 08/11/2020 7:41 PM RABBIT FANCIER Ordered by an unspecified provider. Scanned Document IMAGING * Peripheral Nerve Block (08/08/2020 9:12 AM RABBIT FANCIER) Narrative Dennis Duff MD - 08/08/2020 9:12 AM RABBIT FANCIER Dennis Duff MD 08/08/2020 9:13 AM Peripheral [...] SARS-COV-2 (COVID-19) IN HOUSE (08/04/2020 11:09 AM RABBIT FANCIER) COVID-19 PCR Not detected Not detected 08/04/2020 2:44 PM RABBIT FANCIER [facility] Microbiology SPECIMEN FROM NASOPHARYNGEAL STRUCTURE / Unknown Collection / Unknown 08/04/2020 11:09 AM RABBIT FANCIER 08/04/2020 11:09 AM RABBIT FANCIER Narrative [facility] - 08/04/2020 2:44 PM RABBIT FANCIER This nucleic acid amplification assay performance was validated by [facility]. This test has been authorized [...] Reddy MD LAB - MICROBIOLOGY O RDERABLES [facility] [address] [place] [address], [facility] [[email or web address]] [phone] Care Teams Department Helper Relationship Specialty Start Date End Date Pablito Gates MD [address] [address] PCP - General Family Medicine 07/31/20
--- OUTSIDE RECORDS SUMMARY | 2024-11-11 20:40 | XMS_ITS | Referral Summary ---
Author Organization [facility] Address [address] [place] [address] Care Team Providers Care Passenger Flagman Name Role Phone Pablito Gates MD Primary Care Provider + Source Comments [facility],non-owned Affiliates and Associated Physician Practices is amultiple site organization consisting of ambulatory clinics and hospital sitesin [place], [place], [place] and [place]. This disclosure is being madepursuant to the Care Everywhere program and may not contain all information available regarding this patient. Last updated 18.[facility] Allergies No known active allergies Medications * [...] Comments Blood Pressure 128/84 08/08/2020 1:00 PM NIB ADJUSTER Pulse 57 08/08/2020 1:00 PM NIB ADJUSTER Temperature 36.2 C (97.1 F) 08/08/2020 12:47 PM NIB ADJUSTER Respiratory Rate 15 08/08/2020 12:20 PM NIB ADJUSTER Oxygen Saturation 99% 08/08/2020 1:00 PM NIB ADJUSTER Inhaled Oxygen Concentration - - Weight 74.5 kg (164 lb 3.2 oz) 08/08/2020 8:12 A M NIB ADJUSTER Height 170.2 cm (5' 7 ) 08/08/2020 8:12 AM NIB ADJUSTER Body Mass Index 25.72 08/08/2020 8:12 AM NIB ADJUSTER Plan of Treatment Not on file Medical Devices Implanted Type Area Senior Abap Developer Device Identifier Shelf Expiration Date Model / Serial / Lot [place] Sut Iconix Spd Xbraid 2.3mm 1.2mm Implanted:Qty : 2 on 08/08/2020 by Nayely Reddy MD at [facility] Right: Shoulder [employer] 05/19/2022 [id number] / / [id number] [place] Sut Reelx Stt 4.5mm Peek Mtl Implanted:Qty : 2 on 08/08/2020 by Nayely Reddy MD at [facility] Right: Shoulder [employer] 04/28/2022 [id number] / / [id number] Care Teams Passenger Flagman Relationship Specialty Start Date End Date Pablito Gates MD [address] [address] PCP - General Family Medicine 07/31/20
[2024-11-11] MEDS: ONDANSETRON INJ 4 MG/2 ML VIAL IV PUSH (21:12)
[2024-11-11] MEDS: SODIUM CHLORIDE 0.9% IV 1,000 ML 999 ML IV CONT (21:13)
[2024-11-11] MEDS: MECLIZINE HCL 25 MG TABLET PO (21:13)
[2024-11-11 21:53] LABS: Add Urine Microscopic? NO; Appearance Urine Clear (Clear); Bilirubin Urine Negative (Negative); Blood Urine Negative (Negative); Color Urine Yellow (Yellow); Glucose Urine UA Negative (Negative); Ketones Urine Negative (Negative); Leukocyte Esterase Ur Negative LEU/UL (Negative); Nitrate Urine Negative (Negative); Protein Urine Negative (Negative); Specific Grav Ur > 1.045 (1.001-1.035)
[2024-11-11 22:28] LABS: Influenza A QL RT-PCR Negative (Negative); Influenza B QL RT-PCR Negative (Negative); RSV RNA, RT-PCR Negative (Negative); SARS-CoV-2 RNA PCR Negative (Negative)
[2024-11-11 22:55] LABS: Ethanol < 10 mg/dL (<10)
[2024-11-11 23:02] LABS: Amphetamine Screen Urine Negative (Negative); Barbiturate Screen Urine Negative (Negative); Benzodiazepines Screen Urine Negative (Negative); Cannabinoid Screen Urine Negative (Negative); Cocaine Screen Urine Negative (Negative); Methadone Screen Urine Negative (Negative); Opiate Screen Urine Negative (Negative); Phencyclidine Screen Urine Negative (Negative)
[2024-11-11 23:35] VITALS: BP 158/84; PULSE 57; RESP 16; O2SAT 100
[2024-11-12] VITALS (13 sets, daily range): BP systolic 133–167; BP diastolic 80–103; PULSE 50–63; RESP 15–20; TEMP 36.6–36.7; O2SAT 96–100; BMI 26.0
--- NOTE | 2024-11-12 | ECHO_ITS ---
Patient Info Name: Harinder Higgins Age: 63 years : 1960 Gender: Male Ht: 67 in Wt: 169 lbs BSA: 1.92 m2 HR: 62 bpm BP: 137 / 97 mmHg Technical Quality: Good Exam Date: 11/12/2024 12:55 PM Exam Location: Echo Lab Patient Status: Outpatient Admit Date: 11/12/2024 Staff Ordering Physician: Ingrid Neil DO Medical Translator: Viridiana Marroquin RDCS Attending Provider: Ingrid Neil DO Referring Physician: Jolynn CHAMBERS; Exam Type: CA echo doppler w bubble study Study Info Complete two-dimensional, color flow and Doppler transthoracic echocardiogram is performed with agitated saline. Contrast/Agitated Saline Contrast/Ag. Saline: Agitated Saline Amount: 12.00 ml Existing IV Access: Yes IV Access Condition: patent with no signs of infiltration Summary 1. Left ventricular chamber dimension is normal. 2. Left ventricular systolic function is normal, estimated at 60-65%. 3. There is mild concentric increased left ventricular wall thickness. 4. E/e' 7 is not elevated. 5. There is mild mitral valve regurgitation. 6. No pulmonary hypertension, estimated pulmonary arterial systolic pressure is 19 mmHg. Left Ventricle E/e' 7 is not elevated. Left ventricular chamber dimension is normal. Left ventricular systolic function is normal, estimated at 60-65%. There is mild concentric increased left ventricular wall thickness. Right Ventricle Right ventricular chamber dimension is normal. Right ventricular systolic function is normal. Left Atria Left atrial chamber dimension is normal. Atrial Septum Agitated saline injection with and without valsalva maneuver opacified right side cardiac chambers without shunt to left side cardiac chambers. Intact interatrial septum visualized by 2D and agitated saline imaging. Aortic Valve The aortic valve is trileaflet. There is no aortic valve stenosis. There is no aortic valve regurgitation. Pulmonic Valve There is no pulmonic regurgitation. Mitral Valve There is no mitral valve stenosis. There is mild mitral valve regurgitation. Tricuspid Valve There is no tricuspid valve regurgitation. No pulmonary hypertension, estimated pulmonary arterial systolic pressure is 19 mmHg. Pericardium/Pleural There is no pericardial effusion. Inferior Vena Cava Normal inferior vena cava with >50% collapse upon inspiration consistent with normal right atrial pressure, 5 mmHg. Aorta The aortic root size at the sinus of Valsalva is normal. Left Ventricular Outflow Tract Name Value Normal LVOT 2D LVOT Diameter 1.8 cm LVOT Doppler LVOT Peak Gradient 7 mmHg LVOT Mean Gradient 4 mmHg LVOT VTI 27 cm LVOT VTI/AV VTI Ratio 0.9 LVOT Stroke Volume 70 ml LVOT CO 14.4 l/min LVOT CI 7.5 l/min/m2 Pulmonic Valve Name Value Normal PV Doppler PV Peak Gradient 5 mmHg Mitral Valve Name Value Normal MV Doppler MV Decel [place] 248 cm/s2 MV PHT 75 ms MV Area (PHT) 2.9 cm2 4.0-5.0 MV Diastolic Function MV E Peak Velocity 64 cm/s MV A Peak Velocity 66 cm/s MV E/A 1.0 MV Decel Time 258 ms MV Annular TDI MV E/e' (Septal) 8.3 <=8.0 MV E/e' (Lateral) 6.8 <=8.0 MV E/e' (Average) 7.5 Tricuspid Valve Name Value Normal TV Regurgitation Doppler TR Peak Velocity 188 cm/s TR Peak Gradient 14 mmHg Estimated PAP/RSVP RA Pressure 5 mmHg <=5 PA Systolic Pressure 19 mmHg <36 RV Systolic Pressure 19 mmHg <36 Aorta Name Value Normal Ascending Aorta Ao Root Diameter (MM) 3.0 cm Ao Root Diam Index (MM) 1.5 cm/m2 Aortic Valve Name Value Normal AV Doppler AV Peak Velocity 146 cm/s AV Peak Gradient 9 mmHg AV Mean Gradient 5 mmHg AV VTI 30 cm AV Area (Cont Eq VTI) 2.4 cm2 >=3.0 AV Area (Cont Eq Sandip) 2.3 cm2 AV Regurgitation 2D LVOT Area 2.6 cm2 Ventricles Name Value Normal LV Dimensions 2D/MM IVS Diastolic Thickness (2D) 1.2 cm 0.6-1.0 LVID Diastole (2D) 3.9 cm 4.2-5.8 LVIW Diastolic Thickness (2D) 1.1 cm 0.6-1.0 LVID Systole (2D) 2.1 cm 2.5-4.0 LVOT Diameter 1.8 cm LV Mass (2D Cubed) 143.82 g 88.00-224.00 LV Mass Index (2D Cubed) 75 g/m2 49-115 Relative Wall Thickness (2D) 0.55 LV Fractional Shortening/Ejection Fraction 2D/MM LV Fractional Shortening (2D) 46 % 25-43 LV EF (2D Teicholz) 78 % 52-72 LV Diastolic Volume (4C MOD) 90 ml LV EF (4C MOD) 66 % LV Diastolic Volume (2C MOD) 86 ml LV EF (2C MOD) 62 % LV Diastolic Volume (BP MOD) 89 ml 62-150 LV Diastolic Volume Index (BP MOD) 46 ml/m2 34-74 LV Systolic Volume (BP MOD) 32 ml 21-61 LV Systolic Volume Index (BP MOD) 17 ml/m2 11-31 LV EF (BP MOD) 64 % 52-72 LV Diastolic Length (4C) 8.2 cm LV Systolic Length (4C) 6.6 cm LV Stroke Volume (4C MOD) 60 ml RV Dimensions 2D/MM RVID Diastole (2D) 3.8 cm 2.5-3.5 Atria Name Value Normal LA Dimensions LA Dimension (MM) 3.2 cm 3.0-4.1 LA Volume (4C A-L) 43 ml LA Volume (BP A-L) 49 ml RA Dimensions RA Area (4C) 11.9 cm2 <=18.0 Report Signatures
--- NOTE | 2024-11-12 02:48 | ADMGEN ---
This patient, Harinder Higgins, was admitted to Medical Room 252-. Patient/family oriented to hospital policies and general routines including ID bracelet, bed and alarms, visiting hours, pain management, procedures, bathroom and other care routines, personal items, smoking policy, room service/diet, and visiting hours. Information on how to activate the Rapid Response Team has been discussed. Patient/Family are encouraged to report perceived risks to care and to ask questions if they do not understand what they are told or what they should do.
--- NOTE | 2024-11-12 08:57 | P.PNIM_ITS ---
Subjective Date/time seen: 11/12/24 08:57 Interval history: 63 year old male with pmh/o HLD presents to the ER for dizziness since yesterday. Reports feeling unwell, dizziness, unsteady gait, blurry vision, his symptoms are worse with a position change. IN ED: neurologically intact, vitals are stable. CBC, kidney function unremarkable. Urine without evidence of infection. Drug screen is negative. Alcohol level is not elevated. CT brain without acute findings. Chest x-ray without acute cardiopulmonary abnormality. CTA head and neck without large vessel intracranial occlusion, agreed intracranial stenosis or aneurysm. No carotid or vertebral artery occlusion, dissection or significant stenosis. Received IV fluids, zofran, meclizine and admitted for observation. Objective Data Vital Signs Vital Signs: Vital Signs - 24 hr 11/11/24 19:21 11/11/24 23:35 11/12/24 00:36 Temperature 98.1 F Pulse Rate 60 57 L 55 L Respiratory Rate 18 16 Blood Pressure 159/97 H 158/84 H 167/103 H Pulse Oximetry 96 100 Oxygen Delivery Room Air 11/12/24 00:37 11/12/24 00:38 11/12/24 01:28 Temperature Pulse Rate 53 L 60 51 L Respiratory Rate 15 Blood Pressure 164/95 H 148/101 H 156/94 H Pulse Oximetry 100 Oxygen Delivery 11/12/24 02:05 11/12/24 02:40 11/12/24 04:00 Temperature 97.9 F Pulse Rate 50 L 53 L Respiratory Rate 16 Blood Pressure 139/81 Pulse Oximetry 96 Oxygen Delivery Room Air 11/12/24 04:00 11/12/24 06:49 11/12/24 06:51 Temperature 98.1 F Pulse Rate 55 L 54 L 57 L Respiratory Rate 18 Blood Pressure 149/85 H 154/84 H 134/90 Pulse Oximetry 98 Oxygen Delivery 11/12/24 06:54 11/12/24 08:00 Temperature 97.8 F Pulse Rate 63 55 L Respiratory Rate 18 Blood Pressure 137/97 H 149/87 H Pulse Oximetry 98 Oxygen Delivery Intake/Output Intake/Output: Intake & Output 11/09/24 11/10/24 11/11/24 11/12/24 23:59 23:59 23:59 23:59 Intake Total 1000 100 Balance 1000 100 Meds/Results Medications: Active Medications Generic Name Dose Route Start Last Admin Trade Name Freq PRN Reason Stop Dose Admin Perflutren Lipid Microsphere 0 ml 11/12/24 00:31 Perflutren Lipid Microspheres 1.5 Ml Vial Diluted To 10 Ml Total Volume IV PUSH 11/15/24 00:31 ONCE PRN adequate visualization Protocol Radiology Results: ITS Impressions Chest X-Ray 11/11/24 20:13 IMPRESSION: No acute cardiopulmonary process. Head CT 11/11/24 20:32 IMPRESSION: No acute intracranial process. Head/Neck CTA 11/11/24 21:45 IMPRESSION: No large vessel intracranial occlusion, high-grade intracranial stenosis, or aneurysm. No carotid or vertebral artery occlusion, dissection, or significant stenosis. Labs Labs: Laboratory Results - last 24 hr 11/11/24 11/11/24 19:38 21:44 WBC 7.3 RBC 4.88 Hgb 16.3 Hct 45.4 MCV 93.0 MCH 33.4 MCHC 35.9 RDW 12.0 Plt Count 224 MPV 9.1 Immature Gran % (Auto) 1.2 H Neut % (Auto) 58.6 Lymph % (Auto) 30.9 [place] % (Auto) 6.7 Eos % (Auto) 1.2 Baso % (Auto) 1.4 H Lymph # (Auto) 2.26 [place] # (Auto) 0.5 Eos # (Auto) 0.1 Baso # (Auto) 0.1 Abs Immat Gran (auto) 0.09 H Absolute Neuts (auto) 4.3 Absolute Nucleated RBC 0.000 Nucleated RBC % 0.0 Sodium 137 Potassium 4.1 Chloride 101 Carbon Dioxide 27 Anion Gap 9 BUN 24 H Creatinine 1.29 Estim Creat Clear Calc 49 Estimated GFR 56 L Glucose 115 H Calcium 9.3 Total Bilirubin 0.7 AST 30 ALT 42 Alkaline Phosphatase 86 Total Protein 8.0 Albumin 4.6 Urine Color Yellow Urine Appearance Clear Urine pH 7.0 Ur Specific [place] > 1.045 H Urine Protein Negative Urine Glucose (UA) Negative Urine Ketones Negative Ur Blood (Man) Negative Urine Nitrate Negative Urine Bilirubin Negative Urine Urobilinogen 1.0 Leukocyte Esterase Rfl Negative Urine Opiates Screen Negative Urine Methadone Screen Negative Ur Barbiturates Screen Negative Ur Phencyclidine Scrn Negative Ur Amphetamine Screen Negative U Benzodiazepines Scrn Negative Urine Cocaine Screen Negative U Cannabinoids Screen Negative Ethyl Alcohol < 10 Influenza A (RT-PCR) Negative Influenza B (RT-PCR) Negative RSV (RT-PCR) Negative SARS-CoV-2 RNA (RT-PCR) Negative
--- NOTE | 2024-11-12 09:51 | P.HP_ITS ---
H&P: HPI History of Present Illness Date/Time: 11/12/24 09:51 Chief Complaint: dizzy Narrative: 63 year old male with pmh/o HLD presents to the ER for dizziness since yesterday. Reports feeling unwell, dizziness, unsteady gait, blurry vision, his symptoms are worse with a position change. Pt is pretty healthy with not much history. Reports normal amount of stress latley.However had been feeling fatigued and tired for the last several months. Had been dizzy and light headed. He thinks he didnot drink enough fluids. Last night, his noticed that he just fell asleep in the chiar and when he woke up, he didnot make much sense, was dizzy again. Both were concerned for a stroke. NO travel outside the country, no resp illnesses. Denies smoking, drinking alcohol, no use of recreational drugs. Upon my exam, he has no neurological deficit, alert, oriented but feeling tired and still somewhat dizzy. IN ED: neurologically intact, vitals are stable. CBC, kidney function unremarkable. Urine without evidence of infection. Drug screen is negative. Alcohol level is not elevated. CT brain without acute findings. Chest x-ray without acute cardiopulmonary abnormality. CTA head and neck without large vessel intracranial occlusion, agreed intracranial stenosis or aneurysm. No carotid or vertebral artery occlusion, dissection or significant stenosis. Received IV fluids, zofran, meclizine and admitted for observation. [facility] Past Medical History Medical History (Updated 11/12/24 @ 11:14 by Lidya Rodrigues APRN) Mixed hyperlipidemia Surgical History Surgical History (Updated 12/09/21 @ 07:01 by Pablito Gates MD) History of shoulder surgery 2019 Right rotator cuff repair History of tonsillectomy History of cholecystectomy 2005 Family History Family History Father Heart disease Mother Diabetes mellitus FH: ovarian cancer Cerebrovascular accident Colon polyp Hypertension Sibling CHF (congestive heart failure) Grandparent Acute myocardial infarction Other Malignant neoplasm of prostate Social History Social History (Updated 04/27/23 @ 13:01 by Edward Pelletier CMA) Smoking status: Never smoker Second hand tobacco smoke exposure: No Alcohol intake: never Substance use: never Substance use type: does not use Do You Feel Safe in your Home?: Yes Lack of Transportation: No Lack of Food: Never True Current Housing: I Have Housing Concerned About Future Housing: No Difficulty Paying Gas/Electric Bills: No Difficulty Paying for Meds: No Currently Unemployed: No Education: Associate Degree Difficulty w/ Childcare or Family Care: No Living arrangements: with family Occupation/Education: occupation Gender identity (if verbalized by the patient): Male Sexual Orientation (if Verbalized by the Patient): Straight or Heterosexual Spiritual care concerns: No Agree to blood products: Yes Meds Home Medications and Allergies Home Medications ?Medication ?Instructions ?Recorded ?Confirmed ?Type methylprednisolone 4 mg tablets in mg 11/12/24 History a dose pack Allergies Allergy/AdvReac Type Severity Reaction Status Date / Time No Known Allergies Allergy Mild Verified 04/27/23 12:37 Vital Signs Vital Signs - 24 hr 11/11/24 19:21 11/11/24 23:35 11/12/24 00:36 Temperature 98.1 F Pulse Rate 60 57 L 55 L Respiratory Rate 18 16 Blood Pressure 159/97 H 158/84 H 167/103 H Pulse Oximetry 96 100 Oxygen Delivery Room Air 11/12/24 00:37 11/12/24 00:38 11/12/24 01:28 Temperature Pulse Rate 53 L 60 51 L Respiratory Rate 15 Blood Pressure 164/95 H 148/101 H 156/94 H Pulse Oximetry 100 Oxygen Delivery 11/12/24 02:05 11/12/24 02:40 11/12/24 04:00 Temperature 97.9 F Pulse Rate 50 L 53 L Respiratory Rate 16 Blood Pressure 139/81 Pulse Oximetry 96 Oxygen Delivery Room Air 11/12/24 04:00 11/12/24 06:49 11/12/24 06:51 Temperature 98.1 F Pulse Rate 55 L 54 L 57 L Respiratory Rate 18 Blood Pressure 149/85 H 154/84 H 134/90 Pulse Oximetry 98 Oxygen Delivery 11/12/24 06:54 11/12/24 08:00 Temperature 97.8 F Pulse Rate 63 55 L Respiratory Rate 18 Blood Pressure 137/97 H 149/87 H Pulse Oximetry 98 Oxygen Delivery H&P: Results Labs Labs: Short CBC 11/11/24 Range/Units 19:38 WBC 7.3 (4.5-10.0) K/mm3 Hgb 16.3 (14.0-18.0) g/dL Hct 45.4 (42.0-52.0) % Plt Count 224 (150-375) k/mm3 BMP 11/11/24 19:38 Sodium 137 Potassium 4.1 Chloride 101 Carbon Dioxide 27 BUN 24 H Creatinine 1.29 Glucose 115 H Calcium 9.3 Liver Function 11/11/24 Range/Units 19:38 Total Bilirubin 0.7 (0.2-1.3) mg/dL AST 30 (17-59) U/L ALT 42 (6-50) U/L Alkaline Phosphatase 86 (38-126) U/L Albumin 4.6 (3.5-5.1) g/dL Urine 11/11/24 Range/Units 21:44 Urine Color Yellow (Yellow) Urine Appearance Clear (Clear) Urine pH 7.0 (5.0-9.0) Ur Specific [place] > 1.045 H (1.001-1.035) Urine Protein Negative (Negative) mg/dL Urine Glucose (UA) Negative (Negative) mg/dL Assessment and Plan Assessment and plan (1) Dizziness: Code(s): R42 - Dizziness and giddiness Status: Acute Assessment and Plan: -orthostatics vs completed- ok -EKG- sinus bradycardia - tele monitoring -will check TSK, b12, folate, mg -consult cardiology for symptomatic bradycardia -fall risk (2) Mixed hyperlipidemia: Code(s): E78.2 - Mixed hyperlipidemia Status: Acute Assessment and Plan: will need discussion for starting statin as LDL elevated -115 Plan dvt prophylaxis: lovenox full code Quality VTE Prophylaxis VTE prophylaxis: pharmacologic ordered
--- NOTE | 2024-11-12 12:12 | P.CONNEU_ITS ---
Assessment and Plan Assessment and plan (1) AMS (altered mental status): Code(s): R41.82 - Altered mental status, unspecified Status: Acute (2) Unsteady gait: Code(s): R26.81 - Unsteadiness on feet Status: Acute (3) Dizziness: Code(s): R42 - Dizziness and giddiness Status: Acute Plan According to the patient's and daughter he was sleeping unnecessary too long without any knowledge of what was going on and a he appeared confused and this of course is a concern. At this time he does appear fairly clear mentally and he said all the questions appropriately. Neurologic exam findings are within normal limits feel results of MRI would be followed up. An EEG is also recommended. if some of the questions remain unresolved I shall be glad to see him in my office for follow-up. Consult date: 11/12/24 HPI: Harinder Higgins is a 63 year old male presented to the hospital brought in by his and daughter that he was sleepy for more than 1 day in fact divided in 2 days he slept for long hours and did not know what happened around him when he was brought to the emergency room he still did not know the reason why he was here. He has had some complaints of dizziness and imbalance and blurring of the vision for a day prior to arrival. Symptoms are worse while standing. A CT scan of brain and CT angiogram of the head and neck were performed looking for cerebrovascular disease as a possible etiology and these did not show any significant abnormalities. He has not had any febrile illness or rash or any other concurrent symptoms. But I asked him he does not know why he was brought here and he thought that he was here because his and daughter saw something wrong. Both of them were present at the time of this evaluation and voice their concern. An MRI of the brain has been performed today and the results are awaited. The meanwhile the patient is feeling fairly well and denies any active symptoms. CBC was normal. GFR was slightly low at 56. LDL was 115. Urine toxicology was negative. Review of Systems 2 Review of Systems: The patient denies any history of major head trauma or any febrile illness recently. All systems reviewed & are unremarkable except as noted in HPI and below PMFSH Past Medical History Medical History (Updated 11/12/24 @ 12:18 by Jere Aldrich MD) AMS (altered mental status) Mixed hyperlipidemia Surgical History Surgical History (Updated 12/09/21 @ 07:01 by Pablito Gates MD) History of shoulder surgery 2020 Right rotator cuff repair History of tonsillectomy History of cholecystectomy 2005 Family History Family History Father Heart disease Mother Diabetes mellitus FH: ovarian cancer Cerebrovascular accident Colon polyp Hypertension Sibling CHF (congestive heart failure) Grandparent Acute myocardial infarction Other Malignant neoplasm of prostate Social History Social History (Updated 04/27/23 @ 13:01 by Edward Pelletier CMA) Smoking status: Never smoker Second hand tobacco smoke exposure: No Alcohol intake: never Substance use: never Substance use type: does not use Do You Feel Safe in your Home?: Yes Lack of Transportation: No Lack of Food: Never True Current Housing: I Have Housing Concerned About Future Housing: No Difficulty Paying Gas/Electric Bills: No Difficulty Paying for Meds: No Currently Unemployed: No Education: Associate Degree Difficulty w/ Childcare or Family Care: No Living arrangements: with family Occupation/Education: occupation Gender identity (if verbalized by the patient): Male Sexual Orientation (if Verbalized by the Patient): Straight or Heterosexual Spiritual care concerns: No Agree to blood products: Yes Meds Home Medications and Allergies Home Medications ?Medication ?Instructions ?Recorded ?Confirmed ?Type methylprednisolone 4 mg tablets in mg 11/12/24 History a dose pack Allergies Allergy/AdvReac Type Severity Reaction Status Date / Time No Known Allergies Allergy Mild Verified 04/27/23 12:37 Vital Signs Vital Signs - 24 hr 11/11/24 19:21 11/11/24 23:35 11/12/24 00:36 Temperature 98.1 F Pulse Rate 60 57 L 55 L Respiratory Rate 18 16 Blood Pressure 159/97 H 158/84 H 167/103 H Pulse Oximetry 96 100 Oxygen Delivery Room Air 11/12/24 00:37 11/12/24 00:38 11/12/24 01:28 Temperature Pulse Rate 53 L 60 51 L Respiratory Rate 15 Blood Pressure 164/95 H 148/101 H 156/94 H Pulse Oximetry 100 Oxygen Delivery 11/12/24 02:05 11/12/24 02:40 11/12/24 04:00 Temperature 97.9 F Pulse Rate 50 L 53 L Respiratory Rate 16 Blood Pressure 139/81 Pulse Oximetry 96 Oxygen Delivery Room Air 11/12/24 04:00 11/12/24 06:49 11/12/24 06:51 Temperature 98.1 F Pulse Rate 55 L 54 L 57 L Respiratory Rate 18 Blood Pressure 149/85 H 154/84 H 134/90 Pulse Oximetry 98 Oxygen Delivery 11/12/24 06:54 11/12/24 08:00 11/12/24 08:00 Temperature 97.8 F Pulse Rate 63 55 L 51 L Respiratory Rate 18 Blood Pressure 137/97 H 149/87 H Pulse Oximetry 98 Oxygen Delivery 11/12/24 08:00 Temperature Pulse Rate Respiratory Rate Blood Pressure Pulse Oximetry Oxygen Delivery Room Air Exam 2 Narrative: His 3 Object recall was 3/3. He is able to name 5 cities and 5 colors without any problem. No aphasia or dysarthria. Patient is fairly pleasant and cooperative appears to be well built. Const: General: cooperative, well developed and alert O rientation/consciousness: patient oriented x3 HENMT: Head: atraumatic Eyes: Alignment and Position: position normal Pupils: Equal, round and reactive pupils present EOM: EOMs intact bilaterally Neck: Neck: supple Resp: Effort & Inspection: normal respiratory effort Cardio: Rate: regular rate Neuro: General: patient oriented x3 Cranial nerves: Yes CN's II-XII intact bilaterally, Yes facial sensation intact/muscles of mastication intact, Yes Equal, round and reactive pupils present, Yes facial symmetry and Yes Midline tongue present Cognition (Neuro): normal cognition Speech: normal speech Gait exam (Neuro): Normal gait present Motor exam (neuro): 5/5 motor strength present throughout Sensory Exam: normal sensation Coordination: f [id number] test normal and Normal rapid alternating movements of the distal upper extremity present (Neuro) Results Labs 11/11/24 19:38 11/11/24 19:38 Labs: Short CBC 11/11/24 Range/Units 19:38 WBC 7.3 (4.5-10.0) K/mm3 Hgb 16.3 (14.0-18.0) g/dL Hct 45.4 (42.0-52.0) % Plt Count 224 (150-375) k/mm3 BMP 11/11/24 19:38 Sodium 137 Potassium 4.1 Chloride 101 Carbon Dioxide 27 BUN 24 H Creatinine 1.29 Glucose 115 H Calcium 9.3 Liver Function 11/11/24 Range/Units 19:38 Total Bilirubin 0.7 (0.2-1.3) mg/dL AST 30 (17-59) U/L ALT 42 (6-50) U/L Alkaline Phosphatase 86 (38-126) U/L Albumin 4.6 (3.5-5.1) g/dL Urine 11/11/24 Range/Units 21:44 Urine Color Yellow (Yellow) Urine Appearance Clear (Clear) Urine pH 7.0 (5.0-9.0) Ur Specific [place] > 1.045 H (1.001-1.035) Urine Protein Negative (Negative) mg/dL Urine Glucose (UA) Negative (Negative) mg/dL EXAMINATION: CTA brain carotid DATE: 11/11/2024 21:33 INDICATION: dizziness TECHNIQUE: Computed tomographic angiography (CTA) of the head and neck was performed with 100 mL Omnipaque-350 intravenous contrast. Automated exposure control and iterative reconstruction technique were employed. The dose-length product was 1026.18 mGy-cm. Maximum intensity projection and volume rendered 3D- reconstructions were created by the technologist on a separate workstation. COMPARISON: CT brain, same date. FINDINGS: CTA HEAD: No large vessel occlusion, aneurysm, high flow vascular malformation, nidus or extravasation. Hypoplastic intradural segment of the distal right vertebral artery. Hypoplastic/absent left P1 segment with persistent origin of the left posterior cerebral artery, a normal variant. Symmetric parenchymal enhancement. Patent cerebral veins. CTA NECK: Aortic arch and proximal great vessels: Normal arch anatomy. Atherosclerotic calcifications at the visualized aortic arch and proximal great vessels. Right common carotid, carotid bifurcation, and internal carotid artery: Mild calcified atherosclerotic plaque at the carotid bifurcation.There is 0% stenosis of the proximal right internal carotid artery relative to normal distal artery lumen diameter (NASCET criteria). Left common carotid, carotid bifurcation, and internal carotid artery: Moderate calcified atherosclerotic plaque at the carotid bifurcation.There is 10% stenosis of the proximal left internal carotid artery relative to normal distal artery lumen diameter (NASCET criteria). Vertebral arteries: No significant plaque or stenosis. Left vertebral artery is dominant. Other findings: None. IMPRESSION: No large vessel intracranial occlusion, high-grade intracranial stenosis, or aneurysm. No carotid or vertebral artery occlusion, dissection, or significant stenosis. Reviewed, dictated and finalized at location K.
[2024-11-12] MEDS: ENOXAPARIN 40 MG/0.4 ML SYRINGE SUB-Q (12:27)
--- NOTE | 2024-11-12 16:08 | PM.CNCAR ---
Assessment and Plan Assessment and plan (1) AMS (altered mental status): Code(s): R41.82 - Altered mental status, unspecified Status: Acute Assessment and Plan: His bradycardia is not slow enough to cause his symptoms. 11/12/24 Echo: EF 60-65%, mild LVH, mild MR. Neurology following. No further cardiac workup is needed for now. Please call with any questions. (2) Mixed hyperlipidemia: Code(s): E78.2 - Mixed hyperlipidemia Status: Acute Assessment and Plan: Advise to maintain a low saturated fat diet. History of Present Illness History of Present Illness Consult date/time: 11/12/24 16:08 Reason For Visit: Dizziness, r/o CVA Narrative: 63 yr old man presents to ER with mental status changes. He has a history of dyslipidemia. His is at bedside. She reports that 2 days ago she found him sleeping all day long and then yesterday he went to [employer], was not acting himself sitting in [employer], got home and sat in a recliner all day. When she tried to give him something to drink he was dizzy, confused so they brought him in to ER. He does not recall sleeping all day long. He feels fine currently without dizziness. He is alert and oriented. He can walk 1-2 miles without any problems. Denies chest pain, sob, orthopnea, PND, edema, palpitations. Review of Systems Review of Systems: All systems reviewed & are unremarkable except as noted in HPI and below Constitutional: Constitutional: Reports as per HPI, Denies chills and Denies fever(s) Cardiovascular: Cardiovascular: Reports as per HPI, Denies chest pain and Denies irregular heart rhythm Respiratory: Respiratory: Reports as per HPI and Denies dyspnea Gastrointestinal: Gastrointestinal: Reports as per HPI and Denies abdominal pain Genitourinary: Genitourinary: Reports as per HPI and Denies dysuria Musculoskeletal: Musculoskeletal: Reports as per HPI Neurologic: Reports as per HPI, Reports dizziness and Denies syncope [facility] Past Medical History Medical History (Updated 11/12/24 @ 12:18 by Jere Aldrich MD) AMS (altered mental status) Mixed hyperlipidemia Surgical History Surgical History (Updated 12/09/21 @ 07:01 by Pablito Gates MD) History of shoulder surgery 2020 Right rotator cuff repair History of tonsillectomy History of cholecystectomy 2005 Family History Family History Father Heart disease Mother Diabetes mellitus FH: ovarian cancer Cerebrovascular accident Colon polyp Hypertension Sibling CHF (congestive heart failure) Grandparent Acute myocardial infarction Other Malignant neoplasm of prostate Social History Social History (Updated 04/27/23 @ 13:01 by Edward Pelletier CMA) Smoking status: Never smoker Second hand tobacco smoke exposure: No Alcohol intake: never Substance use: never Substance use type: does not use Do You Feel Safe in your Home?: Yes Lack of Transportation: No Lack of Food: Never True Current Housing: I Have Housing Concerned About Future Housing: No Difficulty Paying Gas/Electric Bills: No Difficulty Paying for Meds: No Currently Unemployed: No Education: Associate Degree Difficulty w/ Childcare or Family Care: No Living arrangements: with family Occupation/Education: occupation Gender identity (if verbalized by the patient): Male Sexual Orientation (if Verbalized by the Patient): Straight or Heterosexual Spiritual care concerns: No Agree to blood products: Yes Meds Home Medications and Allergies Home Medications ?Medication ?Instructions ?Recorded ?Confirmed ?Type methylprednisolone 4 mg tablets in mg 11/12/24 History a dose pack Allergies Allergy/AdvReac Type Severity Reaction Status Date / Time No Known Allergies Allergy Mild Verified 04/27/23 12:37 Vital Signs Vital Signs - 24 hr 11/11/24 19:21 11/11/24 23:35 11/12/24 00:36 Temperature 98.1 F Pulse Rate 60 57 L 55 L Respiratory Rate 18 16 Blood Pressure 159/97 H 158/84 H 167/103 H Pulse Oximetry 96 100 Oxygen Delivery Room Air 11/12/24 00:37 11/12/24 00:38 11/12/24 01:28 Temperature Pulse Rate 53 L 60 51 L Respiratory Rate 15 Blood Pressure 164/95 H 148/101 H 156/94 H Pulse Oximetry 100 Oxygen Delivery 11/12/24 02:05 11/12/24 02:40 11/12/24 04:00 Temperature 97.9 F Pulse Rate 50 L 53 L Respiratory Rate 16 Blood Pressure 139/81 Pulse Oximetry 96 Oxygen Delivery Room Air 11/12/24 04:00 11/12/24 06:49 11/12/24 06:51 Temperature 98.1 F Pulse Rate 55 L 54 L 57 L Respiratory Rate 18 Blood Pressure 149/85 H 154/84 H 134/90 Pulse Oximetry 98 Oxygen Delivery 11/12/24 06:54 11/12/24 08:00 11/12/24 08:00 Temperature 97.8 F Pulse Rate 63 55 L 51 L Respiratory Rate 18 Blood Pressure 137/97 H 149/87 H Pulse Oximetry 98 Oxygen Delivery 11/12/24 08:00 Temperature Pulse Rate Respiratory Rate Blood Pressure Pulse Oximetry Oxygen Delivery Room Air Exam Const: General: cooperative, healthy appearing and comfortable Resp: Auscultation: clear to auscultation bilaterally, no crackles, no rales, no rhonchi and no wheezes Cardio: Rate: regular rate Rhythm: regular rhythm Heart sounds: no murmurs Peripheral pulses: dorsalis pedis present GI: GI Palp: No abdominal tenderness and Yes Soft to palpation Neuro: General: oriented to person, oriented to place and oriented to time Extrem: Right lower extremity: no edema Left lower extremity: no edema Results Labs and Meds 11/11/24 19:38 11/11/24 19:38 Lab results: Cardiac Enzymes 11/11/24 Range/Units 19:38 AST 30 (17-59) U/L CBC 11/11/24 Range/Units 19:38 WBC 7.3 (4.5-10.0) K/mm3 RBC 4.88 (4.6-6.20) M/mm3 Hgb 16.3 (14.0-18.0) g/dL Hct 45.4 (42.0-52.0) % Plt Count 224 (150-375) k/mm3 Lymph # (Auto) 2.26 (0.9-3.2) K/mm3 [place] # (Auto) 0.5 (0.1-0.6) K/mm3 Eos # (Auto) 0.1 (0-0.3) K/mm3 Baso # (Auto) 0.1 (0.0-0.1) K/mm3 Comprehensive Metabolic Panel 11/11/24 Range/Units 19:38 Sodium 137 (137-145) mmol/L Potassium 4.1 (3.4-5.0) mmol/L Chloride 101 (98-107) mmol/L Carbon Dioxide 27 (22-30) mmol/L BUN 24 H (9-20) mg/dL Creatinine 1.29 (0.7-1.3) mg/dL Glucose 115 H (65-110) mg/dL Calcium 9.3 (8.4-10.2) mg/dL AST 30 (17-59) U/L ALT 42 (6-50) U/L Alkaline Phosphatase 86 (38-126) U/L Total Protein 8.0 (6.3-8.2) g/dL Albumin 4.6 (3.5-5.1) g/dL Intake and Output 11/12/24 11/12/24 11/12/24 07:59 15:59 23:59 Intake Total 100 240 Balance 100 240 Intake: Oral 100 240 Other: # Unmeasured Voids 2 Patient Weight 11/12/24 23:59 Weight 75.5 kg
[2024-11-12 16:13] LABS: Magnesium 2.2 mg/dL (1.6-2.3)
[2024-11-12 17:10] LABS: Vitamin D 25 Hydroxy 27.3 ng/mL
[2024-11-12 17:13] LABS: Folic Acid 10.1 ng/mL (2.76->20)
[2024-11-12 19:08] LABS: Hemoglobin A1C 5.3 % (<5.7)
[2024-11-13] VITALS: BP 128/78; PULSE 57; PULSE 58; RESP 18; TEMP 36.6; O2SAT 98
[2024-11-13 04:00] VITALS: BP 142/78; PULSE 51; PULSE 54; RESP 20; TEMP 36.6; O2SAT 98
[2024-11-13 05:24] VITALS: BP 142/78; PULSE 54; RESP 20; TEMP 36.6; O2SAT 98
[2024-11-13 08:00] VITALS: BP 136/70; PULSE 69; RESP 19; TEMP 36.4; O2SAT 97
--- NOTE | 2024-11-13 11:43 | P.DS_ITS ---
DS: Admitting Diagnosis Discharge Date 11/13 Admitting Diagnosis dizzy DS: Discharge Diagnosis Discharge Diagnosis (1) Dizziness: Code(s): R42 - Dizziness and giddiness Status: Acute (2) Mixed hyperlipidemia: Code(s): E78.2 - Mixed hyperlipidemia Status: Acute DS: Summary Hospital Course Hospital Course: 63 year old male with pmh/o HLD presents to the ER for dizziness since yesterday. Reports feeling unwell, dizziness, unsteady gait, blurry vision, his symptoms are worse with a position change. Neurology and cardiology were consulted. Dr Bean saw pt. is bradycardia is not slow enough to cause his symptoms. 11/12/24 Echo: EF 60-65%, mild LVH, mild MR. DR Aldrich saw pt. According to the patient's and daughter he was sleeping unnecessary too long without any knowledge of what was going on and a he appeared confused and this of course is a concern. At this time he does appear fairly clear mentally and he said all the questions appropriately. Neurologic exam findings are within normal limits feel results of MRI would be followed up. An EEG is also recommended. if some of the questions remain unresolved I shall be glad to see him in my office for follow-up. NO further work up is indicated. TSH, hga1c, vit b12, b1, hg all WNL. Pt is to f/u with PCP for further work up. Stress management, increase physical activity: start with [id number] min a day and increase as tolerated. Maintain low sat fat diet. Status at Discharge Functional status at discharge: independent ambulation Overall status at discharge: patient is back to baseline Time Spent with Patient Time attestation: Total time spent providing and/or coordinating discharge services: Time spent: Less than 30 minutes Exam Const: General: comfortable Eyes: General: appearance normal, both eyes and all related structures Resp: Effort & Inspection: normal respiratory effort Auscultation: clear to auscultation bilaterally Cardio: Rate: bradycardic Rhythm: regular rhythm GI: GI Palp: Yes Soft to palpation Auscultation: normal bowel sounds Skin: General skin exam: normal color Neuro: Motor exam (neuro): 5/5 motor strength present throughout Extrem: General: normal to inspection Psych: Mental Status: mental status grossly normal Affect: normal affect DS: Data Data Completed and Pending Labs on day of discharge: Labs from last 24 hours 11/12/24 11/12/24 15:11 15:10 Hemoglobin A1c 5.3 Magnesium 2.2 Vitamin B1 Pending Vitamin B12 610.0 Methylmalonic Acid Pending Vitamin D 25-Hydroxy 27.3 Folate 10.1 Homocysteine Pending TSH (Reflex) 1.620 Discharge Plan Discharge Attending physician on discharge: Joshua Tolentino Consulting providers: Robert Mcqueen; Russ Bean Discharging Clinician: Lidya Rodrigues Activity: december shower Diet: heart healthy Discharge Instructions: You were admitted for feeling of dizzies. Cardiology was consulted for low heart rate. neurology was consulted. So far nothing is abnormal resulted to explain why you had memory loss and feeling of dizziness. As we discuss, please manage stress, prioritize sleep, stay well hydrated. F/u with PCP and neurology for further work up. Discuss with PCP about starting cholesterol medication. Patient Language: Kyrgyz Discharge Medications: Discontinued methylprednisolone 4 mg tablets,dose pack Patient Comments: Only had a couple doses left, unsure of how many Date of admission: 11/12/24 00:30 Primary Care Provider: Pablito Gates Admitting Provider: Ingrid Neil Attending physician on admission: Ingrid Neil Condition: Stable Quality VTE Prophylaxis VTE prophylaxis: pharmacologic ordered Hospitalist MIPS Heart Failure (Exclusion) Patient has history of Heart Transplant or Left Ventricular Assistive Device?: No IF YES, STOP HERE Heart Failure (Qualifier) Patient has current or prior documentation of LVEF less than or equal to 40%, or mod/servere depressed LVSF?: No IF NO, STOP HERE
--- NOTE | 2024-11-13 12:00 | WPDNEUROLOGY ---
Neurology EEG Report General Information Date of Study: 11/13/24 TEST EEG DIAGNOSIS Altered mental status. CONDITION OF RECORDING Awake, drowsy and asleep. EEG NUMBER [id number] CLINICAL HISTORY Patient reports he can not remember last 2 afternoons. Family said he was acting funny and at present feels fine. EEG DESCRIPTION Basic resting occipital frequency consists of large amount of well organized low to medium voltage 9 to 11 hertz per 2nd alpha with good anteroposterior gradient. Low-voltage beta activity is seen diffusely admixed with waxing and waning posterior alpha rhythm during drowsiness. Low-voltage beta activity seen admixed with low-voltage alpha and theta activity during drowsiness evolving into bilateral symmetrical sleep activity with normal and symmetrical sleep spindles. Hyperventilation not done. Photic stimulation not done. Non paroxysmal. Nonfocal. Nonlateralizing. IMPRESSION Normal record. Clinical correlation recommended, there is no evidence of focal or diffuse slow activity consider the possibility of postictal state or early metabolic encephalopathy.
[2024-11-14 16:33] LABS: Homocysteine 13.1 umol/L (<11.4)
[2024-11-15 11:19] LABS: Vitamin B1 12 nmol/L (8-30)
== END 2024-11-13 12:35 | disposition home or self-care (01) ==
LOC: ANHED 11-12 00:43 → ANH2MED 11-13 12:19
PROVIDERS: Nurse Practitioner; Psychiatry & Neurology Neurology; Student in an Organized Health Care Education/Training Program; Admitting Provider Internal Medicine; Emergency Provider Physician Assistant; PCP Family Medicine Adolescent Medicine; Visit Provider Internal Medicine
DX: R42 Dizziness and giddiness (principal); E78.2 Mixed hyperlipidemia; R41.82 Altered mental status, unspecified; H53.8 Other visual disturbances; R26.81 Unsteadiness on feet; R00.1 Bradycardia, unspecified; R41.3 Other amnesia; Z20.822 Contact with and (suspected) exposure to COVID-19
CPT/HCPCS: 36415; 70450; 70496; 70498; 70551; 71045; 80053; 80307; 81003; 82077; 82306; 82607; 82746; 83036; 83090; 83735; 83921; 84425; 84443; 85025; 87637; 93005; 93306; 95816; 96361; 96372; 96374; 96375; 99285; A9270; G0378; J1650; J2405; J7030; Q9967